=== PATIENT | female | born 1975 | race Caucasian/White ===

== ENCOUNTER 2017-01-13 09:50 | Emergency (ER) | payer OTHER ==
--- NOTE | 2017-01-13 10:16 | ERPHSYRPT ---
- History of Present Illness Time Seen by Provider: 01/13/17 10:11 Historian: patient Exam Limitations: no limitations Patient Subjective Stated Complaint: here for sob,and epigstric pain for 2 days , constant pain, sob at rest states hard to take deep breath,no cough, no fever Triage Nursing Assessment: pt alert, walked in, resp labored with excertion, skin w/d pink.no edema noted Physician History: Pt. with substernal CP began 2 days ago, while at rest. States constant, pressure, radiates to back and worse with deep breaths and assoc. with nausea/ vomitng X2 and ? palpitations. States more fatigue, dizziness and weakness but not fever, chills or diaphoresis. Recently had sleep study with shallow breathing and awaiting for C-pap machine. States took Advil with minimal relief. Timing/Duration: day(s) (2) Activities at Onset: rest Quality: pressure Location: substernal Chest Pain Radiation: back Severity of Pain-Max: moderate (5/10) Severity of Pain-Current: moderate Modifying Factors: Improves With: breathing (worsens), movement (worsens). Worsens With: coughing Associated Symptoms: nausea, vomiting, palpitations, shortness of breath, hurts to breathe, fatigue, weakness, dizziness, No diaphoresis, No fever, No edema, No back pain Prior Chest Pain/Cardiac Workup: no prior chest pain Nitro Today/Relief: no nitro taken today Aspirin Treatment Today: no aspirin today Allergies/Adverse Reactions: Sulfa (Sulfonamide Antibiotics) [Sulfa(Sulfonamide Antibiotics)] Allergy ( Intermediate, Verified 01/13/17 10:02) Rash Penicillins Allergy (Unknown, Verified 01/13/17 10:02) Rash pt reports she is not allergic to penicillin Home Medications: Fluticasone/Salmeterol [Advair 250-50 Diskus] 2 puff IH BID PRN 02/11/14 [ History] Bupropion HCl [Wellbutrin] 300 mg PO DAILY 04/21/16 [History] Fexofenadine HCl [Sonia] 180 mg PO DAILY 04/21/16 [History] Paroxetine HCl [Paxil] 20 mg PO DAILY 04/21/16 [History] Hx Tetanus, Diphtheria Vaccination/Date Given: No Hx Influenza Vaccination/Date Given: Yes Hx Pneumococcal Vaccination/Date Given: No - Review of Systems Constitutional: Fatigue, Malaise, No Fever, No Chills Eyes: No Symptoms Ears, Nose, & Throat: Nose Congestion, Nose Discharge, Snoring, No Throat Pain, No Throat Swelling, No Painful Swallowing Respiratory: Dyspnea, No Cough Cardiac: Chest Pain, Palpitations, No Edema, No Syncope, No Orthopnea Abdominal/Gastrointestinal: Abdominal Pain (Epigastric pain), Nausea, Vomiting, No Diarrhea, No Hematemesis, No Hematochezia Genitourinary Symptoms: No Symptoms, No Dysuria Musculoskeletal: No Symptoms, No Back Pain, No Neck Pain Skin: No Symptoms, No Rash Neurological: No Dizziness, No Focal Weakness, No Sensory Changes Psychological: No Symptoms Endocrine: No Symptoms All Other Systems: Reviewed and Negative - Past Medical History Pertinent Past Medical History: Yes Neurological History: No Pertinent History ENT History: No Pertinent History Cardiac History: Arrhythmia (Ablation to resolve symptoms), Other Respiratory History: Asthma Endocrine Medical History: No Pertinent History Musculoskeletal History: No Pertinent History GI Medical History: GERD, Irritable Bowel History: No Pertinent History Psycho-Social History: No Pertinent History Female Reproductive Disorders: No Pertinent History - Past Surgical History Past Surgical History: Yes Neuro Surgical History: No Pertinent History Cardiac: Other Respiratory: No Pertinent History Gastrointestinal: Appendectomy Genitourinary: No Pertinent History Musculoskeletal: No Pertinent History Female Surgical History: Section, Tubal Ligation, Other Other Surgical History: TONSILS. ENDOMETREOSIS. HEART ABLATION FOR VTACH - Social History Smoking Status: Never smoker Exposure to second hand smoke: No Drug Use: none Patient Lives Alone: No - Female History Hx Last Menstrual Period: january - Nursing Vital Signs Temperature: 97.9 F Temperature Source: Oral Pulse Rate: 78 Respiratory Rate: 20 Pain Intensity: 6 - Physical Exam General Appearance: no apparent distress, alert Eye Exam: PERRL/EOMI, eyes nml inspection Ears, Nose, Throat Exam: normal ENT inspection, moist mucous membranes Neck Exam: normal inspection, non-tender, supple, full range of motion Respiratory Exam: normal breath sounds, lungs clear, No respiratory distress Cardiovascular Exam: regular rate/rhythm, normal heart sounds Gastrointestinal/Abdomen Exam: soft, No tenderness, No distention, No mass Back Exam: normal inspection, No CVA tenderness, No vertebral tenderness Extremity Exam: normal inspection, normal range of motion Neurologic Exam: alert, oriented x 3, cooperative, normal mood/affect, sensation nml, No motor deficits Skin Exam: normal color, warm, dry SpO2: 95 Oxygen Delivery: Room Air - Course Nursing assessment & vital signs reviewed: Yes EKG Interpreted by Me: RATE (78), Sinus Rhythm, NORMAL AXIS, NORMAL INTERVALS, NORMAL QRS, NORMAL ST-T - Radiology Exams Chest X-ray Interpretation: Teleradiologist Report, No Pneumonia, Other (calcified granuloma) - CT Exams Chest CT Interpretation: Tele-radiologist Report, No PE Ordered Tests: Active Orders 24 hr Category Date Time Status Airport Location Manager STAT Care 01/13/17 10:22 Active EKG-ER Only STAT Care 01/13/17 10:22 Active IV Insertion STAT Care 01/13/17 10:22 Active CHEST 2 VIEWS (PA AND LAT) Stat Exams 01/13/17 10:23 Completed CHEST WITH CONTRAST [CT] Stat Exams 01/13/17 11:13 Completed BMP Stat Lab 01/13/17 10:30 Completed CBC W DIFF Stat Lab 01/13/17 10:30 Completed CK-Creatinine Phosphokinase Stat Lab 01/13/17 10:30 Completed D-DIMER QUANTITATION Stat Lab 01/13/17 10:30 Completed TROPONIN Q3H Lab 01/13/17 10:30 Completed TROPONIN Q3H Lab 01/13/17 13:30 Ordered TROPONIN Q3H Lab 01/13/17 16:30 Ordered TROPONIN Q3H Lab 01/13/17 19:30 Ordered TROPONIN Q3H Lab 01/13/17 22:30 Ordered Medication Summary Discontinued Medications Generic Name Dose Route Start Last Admin Trade Name Freq PRN Reason Stop Dose Admin Ketorolac Tromethamine 30 mg 01/13/17 10:24 01/13/17 11:02 Toradol 30 Mg Injection IV 01/13/17 10:25 30 mg STAT ONE Administration Ketorolac Tromethamine Confirm 01/13/17 11:01 Toradol 30 Mg Injection Administered 01/13/17 11:02 Dose 30 mg .ROUTE .[facility] ONE Lab/Rad Data: Laboratory Result Diagrams 01/13/17 10:30 01/13/17 10:30 Laboratory Results 01/13/17 01/13/17 01/13/17 Range/Units 10:30 10:30 10:30 WBC (4.0-10.5) K/mm3 RBC (4.1-5.4) M/mm3 Hgb (12.0-16.0) gm/dl Hct (35-47) % MCV (78-100) fl MCH (26-32) pg MCHC (32-36) g/dl RDW (11.5-14.0) % Plt Count (150-450) K/mm3 MPV (6-9.5) fl Gran % (36.0-66.0) % Lymphocytes % (24.0-44.0) % Monocytes % (0.0-12.0) % Eosinophils % (0.00-5.0) % Basophils % (0.0-0.4) % Basophils # (0-0.4) D-Dimer 0.293 (0.00-0.49) mg/L Sodium 135 L (136-145) mEq/L Potassium 3.6 (3.5-5.1) mEq/L Chloride 101 (98-107) mEq/L Carbon Dioxide 27.2 (21-32) mEq/L Anion Gap 10.5 (5-15) MEQ/L BUN 11 (9-20) mg/dL Creatinine 0.94 (0.55-1.30) mg/dl Estimated GFR > 60 ML/MIN Glucose 123 H (70-110) MG/DL Calcium 9.4 (8.5-10.1) mg/dL Creatine Kinase 123 (26-192) U/L Troponin I < 0.017 (0.000-0.056) ng/ml 01/13/17 Range/Units 10:30 WBC 7.6 (4.0-10.5) K/mm3 RBC 4.33 (4.1-5.4) M/mm3 Hgb 12.6 (12.0-16.0) gm/dl Hct 38.5 (35-47) % MCV 88.9 (78-100) fl MCH 29.1 (26-32) pg MCHC 32.7 (32-36) g/dl RDW 12.6 (11.5-14.0) % Plt Count 289 (150-450) K/mm3 MPV 10.5 H (6-9.5) fl Gran % 57.9 (36.0-66.0) % Lymphocytes % 30.8 (24.0-44.0) % Monocytes % 6.0 (0.0-12.0) % Eosinophils % 4.9 (0.00-5.0) % Basophils % 0.4 (0.0-0.4) % Basophils # 0.03 (0-0.4) D-Dimer (0.00-0.49) mg/L Sodium (136-145) mEq/L Potassium (3.5-5.1) mEq/L Chloride (98-107) mEq/L Carbon Dioxide (21-32) mEq/L Anion Gap (5-15) MEQ/L BUN (9-20) mg/dL Creatinine (0.55-1.30) mg/dl Estimated GFR ML/MIN Glucose (70-110) MG/DL Calcium (8.5-10.1) mg/dL Creatine Kinase (26-192) U/L Troponin I (0.000-0.056) ng/ml - Progress Progress: improved Air Movement: good Progress Note: 01/13/17 12:26 Pt. given Toradol/Morphine with good relief of her chest discomfort Blood Culture(s) Obtained: No Antibiotics given: No Counseled pt/family regarding: lab results, diagnosis, rad results - Departure Time of Disposition: 12:27 Departure Disposition: Home Clinical Impression: Pleurisy Condition: Stable Critical Care Time: No Referrals: VIRY JAEGER [Primary Care Provider] - Instructions: Pleurisy Additional Instructions: Motrin 800mg every 8 hrs with food for pain Return for worse chest pain, short of breath, fever, cough or any problems. Forms: Work/School Release Form
[2017-01-13] MEDS ORDERED: TORAdol 30 mg Injection IV ONE (10:24)
[2017-01-13 10:38] LABS: BASOPHIL % 0.4 % (0.0-0.4); Eosinophil % 4.9 % (0.00-5.0); Granulocytes % 57.9 % (36.0-66.0); Lymphocytes % 30.8 % (24.0-44.0); Mean Cell Volume 88.9 fl (78-100); Mean Corpuscular Hemoglobin 29.1 pg (26-32); Mean Platelet Volume 10.5 fl (6-9.5); Platelet Count 289 K/mm3 (150-450); Red Blood Count 4.33 M/mm3 (4.1-5.4); Red Cell Distribution Width 12.6 % (11.5-14.0); White Blood Count 7.6 K/mm3 (4.0-10.5)
[2017-01-13] MEDS ORDERED: TORAdol 30 mg Injection ONE (11:01)
[2017-01-13 11:13] LABS: ANION GAP 10.5 MEQ/L (5-15); BLOOD UREA NITROGEN 11 mg/dL (9-20); CHLORIDE 101 mEq/L (98-107); Carbon Dioxide 27.2 mEq/L (21-32); Glucose 123 MG/DL (70-110); Potassium 3.6 mEq/L (3.5-5.1); SODIUM 135 mEq/L (136-145)
--- NOTE | 2017-01-13 11:18 | XRAY ---
Indication: Chest pain and short of breath. Comparison: February 15, 2014. PA/lateral chest again demonstrates normal heart, lungs, and bony thorax with incidental calcified granulomas.
--- NOTE | 2017-01-13 12:13 | XRAY ---
Indication: Chest pain. Multiple contiguous axial images obtained through the chest using 80 cc Isovue 370 contrast and PE protocol. Comparison: None There is satisfactory opacification of the pulmonary arteries to include the lobar and segmental branches. Heart is not enlarged. Aorta is normal in course and caliber. A few left hilar calcified nodes. No pathologic mediastinal/hilar lymphadenopathy. Examination of the lung parenchyma demonstrates minimal bilateral dependent atelectasis. Left lower lobe calcified granuloma. No suspicious pulmonary mass/nodule, infiltrate, consolidation, or effusion. Bony thorax intact. Limited upper abdomen unremarkable. Impression: 1. Negative for pulmonary embolus. No acute cardiopulmonary abnormalities. 2. Evidence for old granulomatous disease. CT DI 20.00
[2017-01-13] MEDS ORDERED: MORPHINE SULFATE 2 MG INJ IV ONE (12:24)
[2017-01-13 12:30] VITALS: O2SAT 95
[2017-01-13] MEDS ORDERED: MORPHINE SULFATE 4 MG INJ ONE (12:31)
[2017-01-13 12:44] VITALS: BP 142/78; PULSE 74
== END 2017-01-13 13:05 | disposition home or self-care (01) ==
LOC: ED 09:50
DX: R09.1 Pleurisy (principal); R06.02 Shortness of breath; R10.13 Epigastric pain; R11.2 Nausea with vomiting, unspecified; R00.2 Palpitations; R53.1 Weakness; R53.83 Other fatigue; Z79.899 Other long term (current) drug therapy
CPT/HCPCS: 36000; 36415; 71020; 71260; 80048; 82550; 84484; 85025; 85379; 93005; 93041; 96374; 96375; 99284; J1885; J2270

== ENCOUNTER 2021-03-27 10:58 | Emergency (ER) | payer OTHER ==
--- NOTE | 2021-03-27 11:25 | ERPHSYRPT ---
- History of Present Illness Time Seen by Provider: 03/27/21 11:15 Source: patient Exam Limitations: no limitations Patient Subjective Stated Complaint: Pt states "I was sitting in a chair and my head started to feel weird and I had them take my blood pressure and my pressure was cedrick high." Triage Nursing Assessment: Pt presented alert and oriented X3, skin pwd Pt ambulates with an upright steady gait, johnny to speak in clear full sentencse pt i n no apparent respiratory distress. Physician History: This is a morbidly obese 46-year-old white female who has a history of COPD, anxiety, and sleep apnea and wears a machine at night for it. She went to bed feeling fine. However, when she woke up this morning she stated that she had a headache. At work it became worse. Her blood pressure was elevated. Her systolic blood pressure was in the 160s and the diastolic blood pressure was in the 110s. Because of her headache and dizziness and the blood pressure readings, patient was brought over to the emergency department for evaluation. She does not have any chest pain today. She is not diabetic. She is not on any blood pressure medication. She denies visual changes. She has no history of migraine headaches Timing/Duration: today Quality: aching Head Pain Location: global Severity of Pain-Max: moderate Severity of Pain-Current: mild Recent Head Trauma: no recent headache/trauma Modifying Factors: Worsens With: exposure to light, noise, position Associated Symptoms: dizziness, No fever/chills, No loss of consciousness, No nausea/vomiting, No nasal congestion, No sensitive to light, No vision changes Previous symptoms: no prior history Allergies/Adverse Reactions: Sulfa (Sulfonamide Antibiotics) [Sulfa(Sulfonamide Antibiotics)] Allergy (Interm ediate, Verified 01/13/17 10:02) Rash Penicillins Allergy (Unknown, Verified 01/13/17 10:02) Rash pt reports she is not allergic to penicillin Home Medications: Fluticasone/Salmeterol [Advair 250-50 Diskus] 2 puff IH BID PRN 02/11/14 [History] Bupropion HCl [Wellbutrin] 300 mg PO DAILY 04/21/16 [History] Fexofenadine HCl [Sonia] 180 mg PO DAILY 04/21/16 [History] Paroxetine HCl [Paxil] 20 mg PO DAILY 04/21/16 [History] Hx Tetanus, Diphtheria Vaccination/Date Given: No Hx Influenza Vaccination/Date Given: Yes Hx Pneumococcal Vaccination/Date Given: No Immunizations Up to Date: Yes Travel Risk - International Travel Have you traveled outside of the country in past 3 weeks: No - Coronavirus Screening Are you exhibiting any of the following symptoms?: No Close contact with a COVID-19 positive Pt in past 14-21 Days: No - Vaccine Status Have you recieved a Covid-19 vaccination: Yes 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: [facility] - Review of Systems Constitutional: No Symptoms Eyes: No Symptoms Ears, Nose, & Throat: No Symptoms Respiratory: No Symptoms Cardiac: No Symptoms Abdominal/Gastrointestinal: No Symptoms Genitourinary Symptoms: No Symptoms Musculoskeletal: No Symptoms Skin: No Symptoms Neurological: Dizziness, Headache Psychological: No Symptoms Endocrine: No Symptoms Hematologic/Lymphatic: No Symptoms Immunological/Allergic: No Symptoms All Other Systems: Reviewed and Negative - Past Medical History Pertinent Past Medical History: Yes Neurological History: No Pertinent History ENT History: No Pertinent History Cardiac History: Arrhythmia, Other Respiratory History: Asthma Endocrine Medical History: No Pertinent History Musculoskeletal History: No Pertinent History GI Medical History: GERD, Irritable Bowel History: No Pertinent History Psycho-Social History: No Pertinent History Female Reproductive Disorders: No Pertinent History - Past Surgical History Past Surgical History: Yes Neuro Surgical History: No Pertinent History Cardiac: Other Respiratory: No Pertinent History Gastrointestinal: Appendectomy Genitourinary: No Pertinent History Musculoskeletal: No Pertinent History Female Surgical History: Section, Tubal Ligation, Other Other Surgical History: TONSILS. ENDOMETREOSIS. HEART ABLATION FOR VTACH - Social History Smoking Status: Never smoker Exposure to second hand smoke: No Drug Use: none Patient Lives Alone: No - Female History Hx Last Menstrual Period: 03/24/2021 Hx Now: No - Nursing Vital Signs Nursing Vital Signs: Initial Vital Signs Temperature 97.8 F 03/27/21 10:59 Pulse Rate 104 H 03/27/21 10:59 Respiratory Rate 24 03/27/21 10:59 Blood Pressure 162/104 03/27/21 10:59 O2 Sat by Pulse Oximetry 99 03/27/21 10:59 Pain Scale Pain Intensity 0 - Physical Exam General Appearance: no apparent distress Eye Exam: PERRL/EOMI, eyes nml inspection Ears, Nose, Throat Exam: normal ENT inspection, moist mucous membranes Neck Exam: normal inspection, non-tender, supple, full range of motion Respiratory Exam: normal breath sounds, lungs clear, airway intact, No chest tenderness, No respiratory distress Cardiovascular Exam: regular rate/rhythm, normal heart sounds, normal peripheral pulses Gastrointestinal/Abdominal Exam: soft, normal bowel sounds, No tenderness Back Exam: normal inspection, normal range of motion, No CVA tenderness, No vertebral tenderness Extremity Exam: normal inspection, normal range of motion, pelvis stable Mental Status Exam: alert, 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 There are no acute changes when compared to EKG dated 01/13/2017.) Ordered Tests: Active Orders 24 hr Category Date Time Status Brake Drum Molder STAT Care 03/27/21 11:29 Active EKG-ER Only STAT Care 03/27/21 11:30 Active IV Insertion STAT Care 03/27/21 11:29 Active Pulse Oximetry (ED) STAT Care 03/27/21 11:29 Active HEAD WITHOUT CONTRAST [CT] Stat Exams 03/27/21 11:29 Completed CBC W DIFF Stat Lab 03/27/21 11:25 Completed CMP Stat Lab 03/27/21 11:25 Completed TROPONIN Q3H Lab 03/27/21 11:25 Completed TROPONIN Q3H Lab 03/27/21 14:30 Ordered TROPONIN Q3H Lab 03/27/21 17:30 Ordered TROPONIN Q3H Lab 03/27/21 20:30 Ordered TROPONIN Q3H Lab 03/27/21 23:30 Ordered UA W/RFX UR CULTURE Stat Lab 03/27/21 12:41 Completed Medication Summary Discontinued Medications Generic Name Dose Route Start Last Admin Trade Name Freq PRN Reason Stop Dose Admin Morphine Sulfate 2 mg 03/27/21 11:29 03/27/21 11:41 Morphine Sulfate 2 Mg Inj IV 03/27/21 11:30 2 mg STAT ONE Administration Morphine Sulfate Confirm 03/27/21 11:37 Morphine Sulfate 2 Mg Inj Administered 03/27/21 11:38 Dose 2 mg .ROUTE .STK-[facility] ONE Ondansetron HCl 4 mg 03/27/21 11:29 03/27/21 11:38 Zofran 4 Mg/2 Ml Vial IV 03/27/21 11:30 4 mg STAT ONE Administration Ondansetron HCl Confirm 03/27/21 11:36 Zofran 4 Mg/2 Ml Vial Administered 03/27/21 11:37 Dose 4 mg .ROUTE .STK-[facility] ONE Lab/Rad Data: Laboratory Result Diagrams 03/27/21 11:25 03/27/21 11:25 Laboratory Results 03/27/21 03/27/21 03/27/21 Range/Units 12:41 11:25 11:25 WBC (4.0-10.5) K/mm3 RBC (4.1-5.4) M/mm3 Hgb (12.0-16.0) gm/dl Hct (35-47) % MCV (78-100) fl MCH (26-32) pg MCHC (32-36) g/dl RDW (11.5-14.0) % Plt Count (150-450) K/mm3 MPV (7.5-11.0) fl Gran % (36.0-66.0) % Eos # (Auto) (0-0.5) Absolute Lymphs (auto) (1.0-4.6) Absolute Monos (auto) (0.0-1.3) Lymphocytes % (24.0-44.0) % Monocytes % (0.0-12.0) % Eosinophils % (0.00-5.0) % Basophils % (0.0-0.4) % Absolute Granulocytes (1.4-6.9) Basophils # (0-0.4) Sodium 136 L (137-145) mmol/L Potassium 4.4 (3.5-5.1) mmol/L Chloride 100 (98-107) mmol/L Carbon Dioxide 25 (22-30) mmol/L Anion Gap 15.5 H (5-15) MEQ/L BUN 11 (7-17) mg/dL Creatinine 1.08 H (0.52-1.04) mg/dL Estimated GFR 57.8 ML/MIN Glucose 97 (74-106) mg/dL Calcium 9.0 (8.4-10.2) mg/dL Total Bilirubin 0.30 (0.2-1.3) mg/dL AST 29 (14-36) U/L ALT 28 (0-35) U/L Alkaline Phosphatase 68 (38-126) U/L Troponin I < 0.012 (0.000-0.034) ng/mL Serum Total Protein 7.4 (6.3-8.2) g/dL Albumin 4.4 (3.5-5.0) g/dL Urine Color STRAW (YELLOW) Urine Appearance CLEAR (CLEAR) Urine pH 7.0 (5-6) Ur Specific [place] 1.005 (1.005-1.025) Urine Protein NEGATIVE (Negative) Urine Ketones NEGATIVE (NEGATIVE) Urine Blood SMALL (0-5) Nelson/ul Urine Nitrite NEGATIVE (NEGATIVE) Urine Bilirubin NEGATIVE (NEGATIVE) Urine Urobilinogen NEGATIVE (0-1) mg/dL Ur Leukocyte Esterase NEGATIVE (NEGATIVE) Urine WBC (Auto) NONE SEEN (0-5) /HPF Urine RBC (Auto) NONE (0-2) /HPF U Epithel Cells (Auto) NONE (FEW) /HPF Urine Bacteria (Auto) NONE (NEGATIVE) /HPF Urine Mucus (Auto) SLIGHT (NEGATIVE) /HPF Urine Culture Reflexed NO (NO) Urine Glucose NEGATIVE (NEGATIVE) mg/dL 03/27/21 Range/Units 11:25 WBC 8.7 (4.0-10.5) K/mm3 RBC 4.05 L (4.1-5.4) M/mm3 Hgb 12.0 (12.0-16.0) gm/dl Hct 37.7 (35-47) % MCV 93.1 (78-100) fl MCH 29.6 (26-32) pg MCHC 31.8 L (32-36) g/dl RDW 14.7 H (11.5-14.0) % Plt Count 226 (150-450) K/mm3 MPV 10.2 (7.5-11.0) fl Gran % 63.0 (36.0-66.0) % Eos # (Auto) 0.19 (0-0.5) Absolute Lymphs (auto) 2.48 (1.0-4.6) Absolute Monos (auto) 0.52 (0.0-1.3) Lymphocytes % 28.6 (24.0-44.0) % Monocytes % 6.0 (0.0-12.0) % Eosinophils % 2.2 (0.00-5.0) % Basophils % 0.2 (0.0-0.4) % Absolute Granulocytes 5.46 (1.4-6.9) Basophils # 0.02 (0-0.4) Sodium (137-145) mmol/L Potassium (3.5-5.1) mmol/L Chloride (98-107) mmol/L Carbon Dioxide (22-30) mmol/L Anion Gap (5-15) MEQ/L BUN (7-17) mg/dL Creatinine (0.52-1.04) mg/dL Estimated GFR ML/MIN Glucose (74-106) mg/dL Calcium (8.4-10.2) mg/dL Total Bilirubin (0.2-1.3) mg/dL AST (14-36) U/L ALT (0-35) U/L Alkaline Phosphatase (38-126) U/L Troponin I (0.000-0.034) ng/mL Serum Total Protein (6.3-8.2) g/dL Albumin (3.5-5.0) g/dL Urine Color (YELLOW) Urine Appearance (CLEAR) Urine pH (5-6) Ur Specific [place] (1.005-1.025) Urine Protein (Negative) Urine Ketones (NEGATIVE) Urine Blood (0-5) Nelson/ul Urine Nitrite (NEGATIVE) Urine Bilirubin (NEGATIVE) Urine Urobilinogen (0-1) mg/dL Ur Leukocyte Esterase (NEGATIVE) Urine WBC (Auto) (0-5) /HPF Urine RBC (Auto) (0-2) /HPF U Epithel Cells (Auto) (FEW) /HPF Urine Bacteria (Auto) (NEGATIVE) /HPF Urine Mucus (Auto) (NEGATIVE) /HPF Urine Culture Reflexed (NO) Urine Glucose (NEGATIVE) mg/dL - Progress Progress: improved, re-examined, unchanged Air Movement: good Progress Note: 03/27/21 12:02 Patient did later state that she has started a keto diet. She has not had any change in other types of oral intake including no change in her medications. 03/27/21 12:26 CAT scan of the head without contrast shows a subcentimeter old infarct in the right basal ganglia. No evidence of any acute intracranial abnormality. Blood Culture(s) Obtained: No Counseled pt/family regarding: lab results, diagnosis, need for follow-up, rad results - Departure Departure Disposition: Home Clinical Impression: Headache, Mild hypertension Condition: Stable Critical Care Time: No Referrals: VIRY TELLO [Primary Care Provider] - Additional Instructions: Drink plenty of fluids. Stop your keto diet until after you discuss your symptoms, hypertension and the keto diet with your primary care physician. Keep a daily log of your blood pressure readings. Monitor and log your blood pressure reading 3 times a day. Call your primary care physician to make arranges for follow-up appointment. Take all your other medications as prescribed.
[2021-03-27] MEDS ORDERED: Zofran 4 MG/2 ML VIAL IV ONE (11:29)
[2021-03-27] MEDS ORDERED: MORPHINE SULFATE 2 MG INJ IV ONE (11:29)
[2021-03-27] MEDS ORDERED: Zofran 4 MG/2 ML VIAL ONE (11:36)
[2021-03-27] MEDS ORDERED: MORPHINE SULFATE 2 MG INJ ONE (11:37)
[2021-03-27 11:44] LABS: Absolute Neutrophil Ct (ANC) 5.46 (1.4-6.9); BASOPHIL % 0.2 % (0.0-0.4); Basophil (Absolute #) 0.02 (0-0.4); Eosinophil % 2.2 % (0.00-5.0); Eosinophil (Absolute #) 0.19 (0-0.5); Hematocrit 37.7 % (35-47); Lymphocyte (Absolute #) 2.48 (1.0-4.6); Lymphocytes % 28.6 % (24.0-44.0); Mean Cell Volume 93.1 fl (78-100); Mean Corpuscular Hemoglobin 29.6 pg (26-32); Mean Corpuscular Hgb Concent. 31.8 g/dl (32-36); Mean Platelet Volume 10.2 fl (7.5-11.0); Monocyte (Absolute #) 0.52 (0.0-1.3); Platelet Count 226 K/mm3 (150-450); Red Blood Count 4.05 M/mm3 (4.1-5.4); Red Cell Distribution Width 14.7 % (11.5-14.0); White Blood Count 8.7 K/mm3 (4.0-10.5)
[2021-03-27 12:00] LABS: ALBUMIN 4.4 g/dL (3.5-5.0); ANION GAP 15.5 MEQ/L (5-15); BILIRUBIN,TOTAL 0.3 mg/dL (0.2-1.3); Creatinine 1 1.08 mg/dL (0.52-1.04); EST GLOMERULAR FILTRATION RATE 57.8 ML/MIN; Potassium 4.4 mmol/L (3.5-5.1); Total Protein 7.4 g/dL (6.3-8.2)
--- NOTE | 2021-03-27 12:05 | XRAY ---
Indication: Headache, nausea, dizziness, and hypertension. Multiple contiguous axial images obtained through the head without contrast. Comparison: None Ventriculosulcal pattern appears symmetric. Old 9 mm infarct right basal ganglia. No acute intracranial hemorrhage, abnormal extra-axial fluid collection, or mass effect. Fourth ventricle is midline without hydrocephalus. [place]-white matter differentiation preserved. Bony calvarium intact. Visualized paranasal sinuses and mastoid air cells are clear. 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 Remaining CT head without contrast exam is negative.
[2021-03-27 13:16] VITALS: O2SAT 99
[2021-03-27 13:17] LABS: Appearance CLEAR (CLEAR); Bilirubin NEGATIVE (NEGATIVE); Blood SMALL Ery/ul (0-5); Glucose NEGATIVE (NEGATIVE); Ketones NEGATIVE (NEGATIVE); Leukocyte Esterase NEGATIVE (NEGATIVE); Mucus SLIGHT /HPF (NEGATIVE); Nitrite NEGATIVE (NEGATIVE); Protein,Urine Dip NEGATIVE (Negative); Specific Gravity 1.005 (1.005-1.025); Urobilinogen NEGATIVE mg/dL (0-1); WBC NONE SEEN /HPF (0-5)
[2021-03-27 13:25] VITALS: BP 139/82; PULSE 88
== END 2021-03-27 13:32 ==
LOC: ED 10:58
DX: R51.9 Headache, unspecified (principal)
CPT/HCPCS: 36000; 36415; 70450; 80053; 81001; 84484; 85025; 93005; 93041; 94760; 96374; 96375; 99284; J2270; J2405

== ENCOUNTER 2021-04-07 17:04 | Emergency (ER) | payer OTHER ==
[2021-04-07] MEDS ORDERED: Zofran 4 MG/2 ML VIAL ONE (17:34)
[2021-04-07] MEDS ORDERED: MORPHINE SULFATE 4 MG INJ ONE (17:35)
[2021-04-07] MEDS: Zofran 4 MG/2 ML VIAL IV ONE (17:37)
[2021-04-07] MEDS: MORPHINE SULFATE 4 MG INJ IV ONE (17:39)
--- NOTE | 2021-04-07 17:57 | ERPHSYRPT ---
- History of Present Illness Source: patient Exam Limitations: no limitations Patient Subjective Stated Complaint: Abnormal labs Triage Nursing Assessment: Patient ambulated back to ED and transferred self to bed. Patient A+O X3. Patient's skin pink, warm and dry. Patient states she was seen by the doctor today for mid back pain constant aching pain 6/10 for the past two days. Patient also complains of fatigue, [place], Loss of taste and smell, cough, SOB, Vomiting and diarrhea. Patient was tested for Covid today with negative results. Patient was called by doctor to come to ED for D Dimer over 700. Lungs clear a/p melissa. Timing/Duration: day(s) (5), gradual onset, worse Cough Quality/Degree: moderate, dry cough Modifying Factors: Improves With: albuterol nebulizer, rest. Worsens With: activity, coughing Associated Symptoms: chills, chest pain/soreness, cough, headache, muscle aches, wheezing Hx Tetanus, Diphtheria Vaccination/Date Given: No Hx Influenza Vaccination/Date Given: Yes Hx Pneumococcal Vaccination/Date Given: No Immunizations Up to Date: Yes <VANESSA SMITH - Last Filed: 04/07/21 18:36> <JHON SAEED - Last Filed: 04/07/21 19:40> - History of Present Illness Time Seen by Provider: 04/07/21 17:05 Physician History: 46 years old morbidly obese female with history of asthma presented in the ER with chief complaint of cough congestion and flulike symptoms for the last 5 days. Patient report dry hacking cough with shortness of breath on activity/exertion and better with resting and taking neb treatments. She is also complaining of mid back pain constant dull aching 6/10 intensity without any significant aggravating or relieving factors. Denies any chest pain otherwise. She has nausea vomiting, diarrhea with loss of taste and smell. Has been tested for Covid twice and is negative. She was seen at primary care office today and has D-dimer 700s. Sent in ER for DVT/PE rule out. (VANESSA SMITH) Allergies/Adverse Reactions: Sulfa (Sulfonamide Antibiotics) [Sulfa(Sulfonamide Antibiotics)] Allergy (Intermediate, Verified 04/07/21 17:06) Rash Penicillins Allergy (Unknown, Verified 04/07/21 17:06) Rash pt reports she is not allergic to penicillin Home Medications: Fluticasone/Salmeterol [Advair 250-50 Diskus] 2 puff IH BID PRN 02/11/14 [History] Bupropion HCl [Wellbutrin] 300 mg PO DAILY 04/21/16 [History] Fexofenadine HCl [Sonia] 180 mg PO DAILY 04/21/16 [History] Paroxetine HCl [Paxil] 40 mg PO DAILY 04/21/16 [History] Travel Risk - International Travel Have you traveled outside of the country in past 3 weeks: No - Coronavirus Screening Are you exhibiting any of the following symptoms?: Yes Symptoms: Cough: New Onset, Shortness of Breath, Vomiting/Diarrhea, Loss of Taste or Smell, Headaches/Body Aches/Fatigue Close contact with a COVID-19 positive Pt in past 14-21 Days: Yes - Vaccine Status Have you recieved a Covid-19 vaccination: Yes 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[email or web address] <VANESSA SMITH - Last Filed: 04/07/21 18:36> - Review of Systems Constitutional: Chills, Fatigue, Weakness Eyes: No Symptoms Ears, Nose, & Throat: Nose Congestion Respiratory: Cough, Dyspnea, Dyspnea on Exertion (WALKER), Wheezing Cardiac: No Symptoms Abdominal/Gastrointestinal: Nausea, Vomiting, Diarrhea Genitourinary Symptoms: No Symptoms Musculoskeletal: Myalgias Skin: No Symptoms Neurological: No Symptoms Psychological: No Symptoms Endocrine: No Symptoms Hematologic/Lymphatic: No Symptoms Immunological/Allergic: No Symptoms <VANESSA SMITH - Last Filed: 04/07/21 18:36> - Past Medical History Pertinent Past Medical History: Yes Neurological History: No Pertinent History ENT History: No Pertinent History Cardiac History: Arrhythmia, Other Respiratory History: Asthma Endocrine Medical History: No Pertinent History Musculoskeletal History: No Pertinent History GI Medical History: GERD, Irritable Bowel History: No Pertinent History Psycho-Social History: No Pertinent History Female Reproductive Disorders: No Pertinent History - Past Surgical History Past Surgical History: Yes Neuro Surgical History: No Pertinent History Cardiac: Other Respiratory: No Pertinent History Gastrointestinal: Appendectomy Genitourinary: No Pertinent History Musculoskeletal: No Pertinent History Female Surgical History: Section, Tubal Ligation, Other Other Surgical History: TONSILS. ENDOMETREOSIS. HEART ABLATION FOR VTACH - Social History Smoking Status: Never smoker Exposure to second hand smoke: No Drug Use: none Patient Lives Alone: No - Female History Hx Last Menstrual Period: one month ago Hx Now: No <VANESSA SMITH - Last Filed: 04/07/21 18:36> - Physical Exam General Appearance: no apparent distress, alert Eye Exam: PERRL/EOMI, eyes nml inspection Ears, Nose, Throat Exam: TMs normal, pharyngeal erythema Neck Exam: normal inspection, non-tender, full range of motion Respiratory Exam: normal breath sounds, lungs clear Cardiovascular Exam: regular rate/rhythm, normal heart sounds Gastrointestinal/Abdomen Exam: soft, normal bowel sounds, No tenderness Back Exam: normal inspection, normal range of motion Extremity Exam: normal inspection, normal range of motion, pelvis stable Neurologic Exam: alert, oriented x 3, 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, 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 nml as tested Skin Exam: normal color SpO2 Interpretation: normal SpO2: 98 O2 Delivery: Oxymizer <VANESSA SMITH - Last Filed: 04/07/21 18:36> - Nursing Vital Signs Nursing Vital Signs: Initial Vital Signs Temperature 97.2 F 04/07/21 17:10 Pulse Rate 93 H 04/07/21 17:10 Respiratory Rate 18 04/07/21 17:10 Blood Pressure 114/80 04/07/21 17:10 O2 Sat by Pulse Oximetry 98 04/07/21 17:10 Pain Scale Pain Intensity 0 - Course EKG Interpreted by Me: RATE (96), Sinus Rhythm, NORMAL AXIS, NORMAL INTERVALS, NORMAL QRS <VANESSA SMITH - Last Filed: 04/07/21 18:36> - Course EKG Interpreted by Me: RATE - CT Exams Chest CT Interpretation: Tele-radiologist Report (Pulmonary embolus. No evidence of acute pulmonary pathology. Incidental left lower lobe granuloma.) <JHON SAEED - Last Filed: 04/07/21 19:40> Ordered Tests: Active Orders 24 hr Category Date Time Status EKG-ER Only STAT Care 04/07/21 17:28 Active IV Insertion STAT Care 04/07/21 17:28 Active CHEST WITH CONTRAST [CT] Stat Exams 04/07/21 19:16 Taken VENOUS BILATERAL EXTREMITY [US] Stat Exams 04/07/21 17:28 Taken TROPONIN Q3H Lab 04/07/21 17:43 Completed TROPONIN Q3H Lab 04/07/21 20:30 Ordered TROPONIN Q3H Lab 04/07/21 23:30 Ordered TROPONIN Q3H Lab 04/08/21 02:30 Ordered TROPONIN Q3H Lab 04/08/21 05:30 Ordered Medication Summary Generic Name Dose Route Start Last Admin Trade Name Faustino PRN Reason Stop Dose Admin Morphine Sulfate 4 mg 04/07/21 17:28 04/07/21 17:39 Morphine Sulfate 4 Mg Inj IV 04/07/21 17:29 4 mg STAT ONE Administration Ondansetron HCl 4 mg 04/07/21 17:28 04/07/21 17:37 Zofran 4 Mg/2 Ml Vial IV 04/07/21 17:29 4 mg STAT ONE Administration Lab/Rad Data: Laboratory Results 04/07/21 Range/Units 17:43 Troponin I < 0.012 (0.000-0.034) ng/mL - Progress Progress: improved, re-examined Air Movement: good Blood Culture(s) Obtained: No Antibiotics given: No Discussed with : Paola Counseled pt/family regarding: lab results, diagnosis, rad results <VANESSA SMITH - Last Filed: 04/07/21 18:36> <JHON SAEED - Last Filed: 04/07/21 19:40> - Progress Progress Note: 04/07/21 18:57 she is given morphine for symptomatic relief. EKG showed sinus rhythm with no acute ST elevations. I have repeated troponin and is negative. So 6-hour troponins are negative and patient symptom does not seem cardiac origin. CTA is pending. Care is transferred to Dr. Saeed at shift change for final disposition. (VANESSA SMITH) Patient endorsed to Dr. Saeed at approximately [address] Saeed advised to follow- up on pending CTA chest. Dr. Saeed was instructed that patient may be discharged as long as her CT chest is negative. CTA chest is negative for pulmonary embolus. No evidence of acute pulmonary pathology. There is an incidental left lower lobe granuloma. Patient otherwise feels well. Patient states she is ready for discharge. No other or additional work-up indicated at this time. Will discharge home. Patient agrees to follow-up with the primary care doctor within 48 hours for reevaluation. Portions of this note were created with voice recognition technology. There may be grammatical, spelling, punctuation or sound alike errors 04/07/21 19:32 04/07/21 19:39 Ultrasound negative for DVT. (JULIUS SAEEDLANDO) <LUIS,VANESSA - Last Filed: 04/07/21 18:36> - Departure Departure Disposition: Home Critical Care Time: No <JHON SAEED - Last Filed: 04/07/21 19:40> - Departure Clinical Impression: Viral syndrome, Lung granuloma Condition: Stable Referrals: Provider,Unknown [Primary Care Provider] - PK LORENZANA DO [ACTIVE STAFF] - Additional Instructions: Discharge/Care Plan ALBA CARDONA was seen on 04/07/21 in the Emergency Room. The patient was counseled regarding Diagnosis,Lab results, Imaging studies, need for follow up and when to return to the Emergency Room. Prescriptions given: Discharge Note I have spoken with the patient and/or caregivers. I have explained the patient's condition, diagnosis and treatment plan based on the information available to me at this time. I have answered the patient's and/or caregiver's questions and addressed any concerns. The patient and/or caregivers have as good understanding of the patient's diagnosis, condition and treatment plan as can be expected at this point. The vital signs have been stable. The patient's condition is stable and appropriate for discharge from the emergency department. The patient will pursue further outpatient evaluation with the primary care physician or other designated or consulting physician as outlined in the discharge instructions. The patient and/or caregivers are agreeable to this plan of care and follow-up instructions have been explained in detail. The patient and/or caregivers have received these instruction. The patient/and or caregivers are aware that any significant change in condition or worsening of symptoms should prompt an immediate return to this or the closest emergency department or call 911.
[2021-04-07 18:43] VITALS: O2SAT 98
[2021-04-07 20:24] VITALS: BP 118/63; PULSE 79
--- NOTE | 2021-04-08 12:18 | XRAY ---
Exam: Bilateral lower extremity duplex Doppler venous ultrasound exam from 04/07/2021. Comparison: None. Indication: Patient complains of bilateral lower extremity pain. Technique: Grayscale images, color blood flow images, and Doppler tracings without and with Doppler signal augmentation were obtained through the major deep veins of both lower extremities. Findings: On the right side, normal transducer compression, color blood flow, and Doppler signal augmentation were seen within charter representative segments of the common femoral vein, proximal, mid, and distal superficial femoral vein, popliteal vein, and distal posterior tibial veins. Normal color blood flow and Doppler signal augmentation are seen within the right profunda femoral vein. Normal transducer compression was seen within the proximal, mid, and distal greater saphenous vein. There was normal color blood flow and Doppler signal augmentation at the junction of the greater saphenous vein with the superficial femoral vein within the proximal right thigh. On the left side, normal transducer compression, color blood flow, and Doppler signal augmentation were seen within charter representative segments of the common femoral vein, proximal, mid, and distal superficial femoral vein, popliteal vein, and distal posterior tibial veins. Normal color blood flow and Doppler signal augmentation are seen within the left profunda femoral vein. Normal transducer compression is seen within the proximal, mid, and distal greater saphenous vein. Normal color blood flow and Doppler signal augmentation is seen where the greater saphenous vein joins the superficial femoral vein within the proximal left thigh. Impression: 1. There is no sonographic or Doppler evidence of deep venous thrombosis within either lower extremity. 2. Nor do I see evidence of superficial venous thrombosis within either lower extremity.
--- NOTE | 2021-04-08 12:38 | XRAY ---
Exam: CT of the chest with IV contrast per PE protocol from 04/07/2021. CTDI: 31.86 mGy Comparison: CT of the chest with IV contrast from 01/13/2017. Indication: 46-year-old female with chest pressure; elevated d-dimer (769); chest pain. Technique: Post-IV contrast axial images were obtained through the chest using the PE the protocol and employing 100 ML's of Isovue 370 contrast material. Reconstructed coronal and sagittal images were created and reviewed. Findings: I see no evidence of clot/embolus within the pulmonary arteries. The thoracic aorta reveals no evidence of aneurysm or dissection. The heart size is normal without pericardial effusion. No abnormal mediastinal or perihilar lymphadenopathy is seen. I do note a few small left perihilar/infrahilar granulomatous calcifications. There is a calcified granuloma within the lateral aspect of the left lower lobe. In addition, there is a 4 mm noncalcified soft tissue nodule at the posterior lateral left lung base on axial images #54 and #55. No air space infiltrates, vascular congestion, pneumothorax, or pleural effusion is seen. Images of the visualized upper abdomen reveal unremarkable appearance of the adrenal glands. No other gross abnormality is seen within the visualized upper abdomen. The skeleton reveals no acute fracture or aggressive bone lesion. Small anterior vertebral endplate spurs are seen within the thoracic spine. There is slight convexity of the mid thoracic spine toward the right. Impression: 1. No CT evidence of acute pulmonary embolus is seen. Nor do I see evidence of thoracic aortic aneurysm or dissection. 2. Old healed granulomatous disease is seen on the left. 3. 4 mm soft tissue lung nodule posterolaterally at left lung base on axial images #54 and #55. If the patient is at low risk for cancer, no follow-up is recommended according to Fleischner Society guidelines from 2017. If the patient is at high risk, an optional CT of the chest in 12 months may be considered.
== END 2021-04-07 20:23 | disposition home or self-care (01) ==
LOC: ED 17:04
DX: B34.9 Viral infection, unspecified (principal); R05 Cough; R06.02 Shortness of breath; M54.6 Pain in thoracic spine; R11.2 Nausea with vomiting, unspecified; R19.7 Diarrhea, unspecified; Z79.899 Other long term (current) drug therapy; R51.9 Headache, unspecified; R53.1 Weakness; J84.10 Pulmonary fibrosis, unspecified
CPT/HCPCS: 36000; 36415; 71260; 84484; 93005; 93970; 96374; 96375; 99284; J2270; J2405

== ENCOUNTER 2021-05-10 04:18 | Emergency (ER) | payer OTHER ==
[2021-05-10 04:32] VITALS: BP 116/81
--- NOTE | 2021-05-10 05:16 | ERPHSYRPT ---
- History of Present Illness Time Seen by Provider: 05/10/21 05:12 Source: patient, family Exam Limitations: no limitations Patient Subjective Stated Complaint: red, itchy rash Triage Nursing Assessment: red circular raised rash on face, chest, abdomen, arms, ears, thighs Physician History: pt had diarrhea and had Covid test on Tuesday which was negative, had continued symptoms and broke out in rash yesterday with itching since. No fever or any resp symptoms and GI has resolved now. Timing/Duration: constant Severity: moderate Location: face, torso, extremities Possible Causes: no cause identified Associated Symptoms: rash, No difficulty breathing, No fever, No flushing, No headache, No hives, No sore throat Allergies/Adverse Reactions: Sulfa (Sulfonamide Antibiotics) [Sulfa(Sulfonamide Antibiotics)] Allergy (Intermediate, Verified 04/07/21 17:06) Rash Penicillins Allergy (Unknown, Verified 04/07/21 17:06) Rash pt reports she is not allergic to penicillin Home Medications: Fluticasone/Salmeterol [Advair 250-50 Diskus] 2 puff IH BID PRN 02/11/14 [History] Bupropion HCl [Wellbutrin] 300 mg PO DAILY 04/21/16 [History] Fexofenadine HCl [Sonia] 180 mg PO DAILY 04/21/16 [History] Paroxetine HCl [Paxil] 40 mg PO DAILY 04/21/16 [History] Hx Tetanus, Diphtheria Vaccination/Date Given: No Hx Influenza Vaccination/Date Given: No Hx Pneumococcal Vaccination/Date Given: No Immunizations Up to Date: Yes Travel Risk - International Travel Have you traveled outside of the country in past 3 weeks: No - Coronavirus Screening Are you exhibiting any of the following symptoms?: No Close contact with a COVID-19 positive Pt in past 14-21 Days: No - Vaccine Status Have you recieved a Covid-19 vaccination: Yes 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[employer] - Review of Systems Constitutional: No Fever, No Chills Eyes: No Symptoms Ears, Nose, & Throat: No Symptoms Respiratory: No Cough, No Dyspnea Cardiac: No Chest Pain, No Edema, No Syncope Abdominal/Gastrointestinal: No Abdominal Pain, No Nausea, No Vomiting, No Diarrhea Genitourinary Symptoms: No Dysuria Musculoskeletal: No Back Pain, No Neck Pain Skin: Rash Neurological: No Dizziness, No Focal Weakness, No Sensory Changes Psychological: No Symptoms Endocrine: No Symptoms Hematologic/Lymphatic: No Symptoms Immunological/Allergic: No Symptoms All Other Systems: Reviewed and Negative - Past Medical History Pertinent Past Medical History: Yes Neurological History: No Pertinent History ENT History: No Pertinent History Cardiac History: Arrhythmia, Other Respiratory History: Asthma Endocrine Medical History: No Pertinent History Musculoskeletal History: No Pertinent History GI Medical History: GERD, Irritable Bowel History: No Pertinent History Psycho-Social History: No Pertinent History Female Reproductive Disorders: No Pertinent History - Past Surgical History Past Surgical History: Yes Neuro Surgical History: No Pertinent History Cardiac: Other Respiratory: No Pertinent History Gastrointestinal: Appendectomy Genitourinary: No Pertinent History Musculoskeletal: No Pertinent History Female Surgical History: Section, Tubal Ligation, Other Other Surgical History: TONSILS. ENDOMETREOSIS. HEART ABLATION FOR VTACH - Social History Smoking Status: Never smoker Exposure to second hand smoke: No Drug Use: none Patient Lives Alone: No - Female History Hx Last Menstrual Period: 05/10/21 Hx Now: No - Nursing Vital Signs Nursing Vital Signs: Initial Vital Signs Temperature 98.3 F 05/10/21 04:24 Pulse Rate 86 05/10/21 04:24 Respiratory Rate 18 05/10/21 04:24 Blood Pressure 116/81 05/10/21 04:24 O2 Sat by Pulse Oximetry 96 05/10/21 04:24 Pain Scale Pain Intensity 0 - Physical Exam General Appearance: no apparent distress, alert Eye Exam: PERRL/EOMI, eyes nml inspection Ears, Nose, Throat Exam: normal ENT inspection, pharynx normal, moist mucous membranes Neck Exam: normal inspection, non-tender, supple, full range of motion Respiratory Exam: normal breath sounds, lungs clear, No respiratory distress Cardiovascular Exam: regular rate/rhythm, normal heart sounds Gastrointestinal/Abdomen Exam: soft, mass, No tenderness Back Exam: normal inspection, normal range of motion, No CVA tenderness, No vertebral tenderness Extremity Exam: normal inspection, normal range of motion Neurologic Exam: alert, oriented x 3, cooperative, normal mood/affect, sensation nml, No motor deficits Skin Exam: normal color, warm, dry, rash, other (maculo papular) SpO2 Interpretation: normal SpO2: 96 O2 Delivery: Room Air - Course Nursing assessment & vital signs reviewed: Yes Ordered Tests: Active Orders 24 hr Category Date Time Status CBC W DIFF Stat Lab 05/10/21 05:16 Completed CMP Stat Lab 05/10/21 05:16 Completed CULTURE,URINE Stat Lab 05/10/21 05:16 Received UA W/RFX UR CULTURE Stat Lab 05/10/21 05:16 Completed Medication Summary Discontinued Medications Generic Name Dose Route Start Last Admin Trade Name Faustino PRN Reason Stop Dose Admin Diphenhydramine HCl 50 mg 05/10/21 05:30 05/10/21 05:32 Benadryl 25 Mg Capsule PO 05/10/21 05:31 50 mg STAT ONE Administration Diphenhydramine HCl Confirm 05/10/21 05:31 Benadryl 25 Mg Capsule Administered 05/10/21 05:32 Dose 50 mg .ROUTE .STK-MED ONE Prednisone 40 mg 05/10/21 05:29 05/10/21 05:32 Deltasone 20 Mg PO 05/10/21 05:30 40 mg STAT ONE Administration Prednisone Confirm 05/10/21 05:30 Deltasone 20 Mg Administered 05/10/21 05:31 Dose 40 mg .ROUTE .STK-MED ONE Lab/Rad Data: Laboratory Result Diagrams 05/10/21 05:16 05/10/21 05:16 Laboratory Results 05/10/21 05/10/21 05/10/21 Range/Units 05:16 05:16 05:16 WBC 8.6 (4.0-10.5) K/mm3 RBC 4.36 (4.1-5.4) M/mm3 Hgb 13.4 (12.0-16.0) gm/dl Hct 41.3 (35-47) % MCV 94.7 (78-100) fl MCH 30.7 (26-32) pg MCHC 32.4 (32-36) g/dl RDW 14.8 H (11.5-14.0) % Plt Count 235 (150-450) K/mm3 MPV 9.8 (7.5-11.0) fl Gran % 57.9 (36.0-66.0) % Eos # (Auto) 0.37 (0-0.5) Absolute Lymphs (auto) 2.84 (1.0-4.6) Absolute Monos (auto) 0.41 (0.0-1.3) Lymphocytes % 32.9 (24.0-44.0) % Monocytes % 4.8 (0.0-12.0) % Eosinophils % 4.3 (0.00-5.0) % Basophils % 0.1 (0.0-0.4) % Absolute Granulocytes 4.99 (1.4-6.9) Basophils # 0.01 (0-0.4) Sodium 142 (137-145) mmol/L Potassium 4.4 (3.5-5.1) mmol/L Chloride 104 (98-107) mmol/L Carbon Dioxide 27 (22-30) mmol/L Anion Gap 15.8 H (5-15) MEQ/L BUN 14 (7-17) mg/dL Creatinine 0.80 (0.52-1.04) mg/dL Estimated GFR > 60.0 ML/MIN Glucose 101 (74-106) mg/dL Calcium 9.2 (8.4-10.2) mg/dL Total Bilirubin 0.20 (0.2-1.3) mg/dL AST 30 (14-36) U/L ALT 33 (0-35) U/L Alkaline Phosphatase 76 (38-126) U/L Serum Total Protein 7.6 (6.3-8.2) g/dL Albumin 4.4 (3.5-5.0) g/dL Urine Color YELLOW (YELLOW) Urine Appearance CLEAR (CLEAR) Urine pH 6.0 (5-6) Ur Specific Qulin 1.006 (1.005-1.025) Urine Protein NEGATIVE (Negative) Urine Ketones NEGATIVE (NEGATIVE) Urine Blood LARGE (0-5) Nelson/ul Urine Nitrite NEGATIVE (NEGATIVE) Urine Bilirubin NEGATIVE (NEGATIVE) Urine Urobilinogen NEGATIVE (0-1) mg/dL Ur Leukocyte Esterase NEGATIVE (NEGATIVE) Urine WBC (Auto) 6-10 (0-5) /HPF Urine RBC (Auto) >101 (0-2) /HPF U Epithel Cells (Auto) NONE (FEW) /HPF Urine Bacteria (Auto) RARE (NEGATIVE) /HPF Urine Culture Reflexed YES (NO) Urine Glucose NEGATIVE (NEGATIVE) mg/dL - Progress Progress: improved, re-examined Counseled pt/family regarding: lab results, diagnosis, need for follow-up - Departure Departure Disposition: Home Clinical Impression: Person under investigation for COVID-19, Rash and nonspecific skin eruption, He maturia Condition: Good Critical Care Time: No Referrals: DOCTOR,NO FAMILY [Primary Care Provider] - Instructions: Skin Rash (DC), Viral Exanthem (DC), Coronavirus Disease 2019 (COVID-19) (DC), Blood in the Urine (Hematuria), Adult (DC) Additional Instructions: We are treating you for the rash but have not yet determined a cause , so follow-up with your Dr. is important to complete the workup and clear you back to work. It could still be Covid so we advise to self-quarantine until the result is available of the repeat test we ordered for Covid. There is blood in urine which is most likely from your current period, but still needs to be recheck after your period to confirm resolution. Return meantime if short of breath , trouble swallowing or any other concerns. Prescriptions: Methylprednisolone Packet [Medrol Dosepack] 4 mg PO UD #30 packet
[2021-05-10 05:21] VITALS: PULSE 84
[2021-05-10] MEDS ORDERED: DELTASONE 20 MG PO ONE (05:29)
[2021-05-10] MEDS ORDERED: BENADRYL 25 MG CAPSULE PO ONE (05:30)
[2021-05-10] MEDS ORDERED: DELTASONE 20 MG ONE (05:30)
[2021-05-10 05:31] LABS: Absolute Neutrophil Ct (ANC) 4.99 (1.4-6.9); BASOPHIL % 0.1 % (0.0-0.4); Basophil (Absolute #) 0.01 (0-0.4); Eosinophil % 4.3 % (0.00-5.0); Eosinophil (Absolute #) 0.37 (0-0.5); Hematocrit 41.3 % (35-47); Hemoglobin 13.4 gm/dl (12.0-16.0); Lymphocyte (Absolute #) 2.84 (1.0-4.6); Lymphocytes % 32.9 % (24.0-44.0); Mean Cell Volume 94.7 fl (78-100); Mean Corpuscular Hemoglobin 30.7 pg (26-32); Mean Corpuscular Hgb Concent. 32.4 g/dl (32-36); Mean Platelet Volume 9.8 fl (7.5-11.0); Monocyte (Absolute #) 0.41 (0.0-1.3); Monocytes % 4.8 % (0.0-12.0); Neutrophil % 57.9 % (36.0-66.0); Platelet Count 235 K/mm3 (150-450); Red Blood Count 4.36 M/mm3 (4.1-5.4); Red Cell Distribution Width 14.8 % (11.5-14.0); White Blood Count 8.6 K/mm3 (4.0-10.5)
[2021-05-10] MEDS ORDERED: BENADRYL 25 MG CAPSULE ONE (05:31)
[2021-05-10 05:35] VITALS: O2SAT 96
[2021-05-10 05:36] LABS: Appearance CLEAR (CLEAR); Bacteria RARE /HPF (NEGATIVE); Bilirubin NEGATIVE (NEGATIVE); Blood LARGE Ery/ul (0-5); Glucose NEGATIVE (NEGATIVE); Ketones NEGATIVE (NEGATIVE); Leukocyte Esterase NEGATIVE (NEGATIVE); Nitrite NEGATIVE (NEGATIVE); Protein,Urine Dip NEGATIVE (Negative); RBC >101 /HPF (0-2); Specific Gravity 1.006 (1.005-1.025); Urobilinogen NEGATIVE mg/dL (0-1)
[2021-05-10 05:45] LABS: ALBUMIN 4.4 g/dL (3.5-5.0); ALKALINE PHOSPHATASE 76 U/L (38-126); ANION GAP 15.8 MEQ/L (5-15); BLOOD UREA NITROGEN 14 mg/dL (7-17); CHLORIDE 104 mmol/L (98-107); Calcium 9.2 mg/dL (8.4-10.2); Carbon Dioxide 27 mmol/L (22-30); EST GLOMERULAR FILTRATION RATE > 60.0 ML/MIN; Glucose 101 mg/dL (74-106); Potassium 4.4 mmol/L (3.5-5.1); SGOT/AST 30 U/L (14-36); SGPT/ALT 33 U/L (0-35); SODIUM 142 mmol/L (137-145); Total Protein 7.6 g/dL (6.3-8.2)
== END 2021-05-10 06:19 | disposition home or self-care (01) ==
LOC: ED 04:18
DX: Z01.812 Encounter for preprocedural laboratory examination (principal); R21 Rash and other nonspecific skin eruption
CPT/HCPCS: 36415; 80053; 81001; 85025; 87086; 99283; U0003; A9270-GY

== ENCOUNTER 2021-05-11 18:45 | Emergency (ER) | payer OTHER ==
[2021-05-11] MEDS ORDERED: Kenalog-40 IM ONE (20:57)
[2021-05-11] MEDS ORDERED: Kenalog-40 ONE (21:02)
--- NOTE | 2021-05-11 21:03 | ERPHSYRPT ---
- History of Present Illness Time Seen by Provider: 05/11/21 20:55 Source: patient Exam Limitations: no limitations Patient Subjective Stated Complaint: rash following a week of nvd, fever and body aches. rash covers entire body. pt states rash blackburn, hurts and itches Triage Nursing Assessment: red rash covering entire body. pt states some of the rash is weeping clear fluid Physician History: 46 years old female presented in the ER for evaluation of rash for the last 3 days. Patient reports she had a nausea vomiting and Covid symptoms which lasted for almost a week and started to improve, Covid testing is pending and started to have rash all over which is progressively worsening. She was evaluated in the ER and currently on Medrol Dosepak but does not seem to have much help as she is continues to have itching and burning sensation. Denies any difficulty breathing. Vomiting and diarrhea is improved. No fever or chills reported. Timing/Duration: day(s) (3), constant, gradual onset, worse Quality: burning, itchy, painful Severity: moderate Location: face, torso, extremities, generalized Possible Causes: no cause identified Associated Symptoms: rash, No difficulty breathing, No flushing, No hives, No malaise, No sore throat Allergies/Adverse Reactions: Sulfa (Sulfonamide Antibiotics) [Sulfa(Sulfonamide Antibiotics)] Allergy (Intermediate, Verified 04/07/21 17:06) Rash Penicillins Allergy (Unknown, Verified 04/07/21 17:06) Rash pt reports she is not allergic to penicillin Home Medications: Fluticasone/Salmeterol [Advair 250-50 Diskus] 2 puff IH BID PRN 02/11/14 [History] Bupropion HCl [Wellbutrin] 300 mg PO DAILY 04/21/16 [History] Fexofenadine HCl [Sonia] 180 mg PO DAILY 04/21/16 [History] Paroxetine HCl [Paxil] 40 mg PO DAILY 04/21/16 [History] Hx Tetanus, Diphtheria Vaccination/Date Given: No Hx Influenza Vaccination/Date Given: No Hx Pneumococcal Vaccination/Date Given: No Immunizations Up to Date: Yes Travel Risk - International Travel Have you traveled outside of the country in past 3 weeks: No - Coronavirus Screening Symptoms: Vomiting/Diarrhea, Loss of Taste or Smell, Headaches/Body Aches/Fatigue Close contact with a COVID-19 positive Pt in past 14-21 Days: No - Vaccine Status Have you recieved a Covid-19 vaccination: Yes 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[employer] - Review of Systems Constitutional: No Symptoms Eyes: No Symptoms Ears, Nose, & Throat: No Symptoms Respiratory: No Symptoms Cardiac: No Symptoms Abdominal/Gastrointestinal: No Symptoms Genitourinary Symptoms: No Symptoms Skin: Rash Neurological: No Symptoms Psychological: Anxiety Endocrine: No Symptoms Hematologic/Lymphatic: No Symptoms Immunological/Allergic: No Symptoms - Past Medical History Pertinent Past Medical History: Yes Neurological History: No Pertinent History ENT History: No Pertinent History Cardiac History: Arrhythmia, Other Respiratory History: Asthma Endocrine Medical History: No Pertinent History Musculoskeletal History: No Pertinent History GI Medical History: GERD, Irritable Bowel History: No Pertinent History Psycho-Social History: No Pertinent History Female Reproductive Disorders: No Pertinent History - Past Surgical History Past Surgical History: Yes Neuro Surgical History: No Pertinent History Cardiac: Other Respiratory: No Pertinent History Gastrointestinal: Appendectomy Genitourinary: No Pertinent History Musculoskeletal: No Pertinent History Female Surgical History: Section, Tubal Ligation, Other Other Surgical History: TONSILS. ENDOMETREOSIS. HEART ABLATION FOR VTACH - Social History Smoking Status: Never smoker Exposure to second hand smoke: No Drug Use: none Patient Lives Alone: No - Female History Hx Last Menstrual Period: 05/08/21 Hx Now: No - Nursing Vital Signs Nursing Vital Signs: Initial Vital Signs Temperature 96.6 F 05/11/21 20:33 Pulse Rate 103 H 05/11/21 20:33 Respiratory Rate 20 05/11/21 20:33 Blood Pressure 148/90 05/11/21 20:33 O2 Sat by Pulse Oximetry 97 05/11/21 20:33 Pain Scale Pain Intensity 6 - Physical Exam General Appearance: no apparent distress, alert, anxiety Eye Exam: PERRL/EOMI, eyes nml inspection Ears, Nose, Throat Exam: normal ENT inspection, pharynx normal Neck Exam: normal inspection, non-tender, full range of motion Respiratory Exam: normal breath sounds, lungs clear Cardiovascular Exam: regular rate/rhythm, normal heart sounds Gastrointestinal/Abdomen Exam: soft, No tenderness Extremity Exam: normal inspection, normal range of motion Neurologic Exam: alert, oriented x 3, cooperative, 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 Blanchable. No increased temperature. No definite of tenderness.) SpO2 Interpretation: normal SpO2: 97 O2 Delivery: Room Air Ordered Tests: Medication Summary Discontinued Medications Generic Name Dose Route Start Last Admin Trade Name Faustino PRN Reason Stop Dose Admin Sodium Chloride 1,000 mls @ 999 mls/hr 05/11/21 22:09 05/11/21 22:24 Sodium Chloride 0.9% 1000 Ml IV 05/11/21 23:09 999 mls/hr .Q1H1M STA Administration Sodium Chloride Confirm 05/11/21 22:11 Sodium Chloride 0.9% 1000 Ml Administered 05/11/21 22:12 Dose 1,000 mls @ ud .ROUTE .STK-MED ONE Triamcinolone Acetonide 60 mg 05/11/21 20:57 05/11/21 21:05 Kenalog-40 IM 05/11/21 20:58 60 mg STAT ONE Administration Triamcinolone Acetonide Confirm 05/11/21 21:02 Kenalog-40 Administered 05/11/21 21:03 Dose 80 mg .ROUTE .STK-MED ONE Lab/Rad Data: Laboratory Result Diagrams 05/11/21 21:15 05/11/21 21:15 Laboratory Results 05/11/21 05/11/21 Range/Units 21:15 21:15 WBC 13.0 H (4.0-10.5) K/mm3 RBC 4.53 (4.1-5.4) M/mm3 Hgb 14.1 (12.0-16.0) gm/dl Hct 43.1 (35-47) % MCV 95.1 (78-100) fl MCH 31.1 (26-32) pg MCHC 32.7 (32-36) g/dl RDW 14.9 H (11.5-14.0) % Plt Count 262 (150-450) K/mm3 MPV 10.4 (7.5-11.0) fl Gran % 94.1 H (36.0-66.0) % Eos # (Auto) 0.01 (0-0.5) Absolute Lymphs (auto) 0.63 L (1.0-4.6) Absolute Monos (auto) 0.10 (0.0-1.3) Lymphocytes % 4.9 L (24.0-44.0) % Monocytes % 0.8 (0.0-12.0) % Eosinophils % 0.1 (0.00-5.0) % Basophils % 0.1 (0.0-0.4) % Absolute Granulocytes 12.22 H (1.4-6.9) Basophils # 0.01 (0-0.4) Sodium 138 (137-145) mmol/L Potassium 4.1 (3.5-5.1) mmol/L Chloride 104 (98-107) mmol/L Carbon Dioxide 18 L (22-30) mmol/L Anion Gap 20.5 H (5-15) MEQ/L BUN 14 (7-17) mg/dL Creatinine 0.89 (0.52-1.04) mg/dL Estimated GFR > 60.0 ML/MIN Glucose 168 H (74-106) mg/dL Calcium 9.3 (8.4-10.2) mg/dL Total Bilirubin 0.30 (0.2-1.3) mg/dL AST 40 H (14-36) U/L ALT 40 H (0-35) U/L Alkaline Phosphatase 84 (38-126) U/L Serum Total Protein 8.1 (6.3-8.2) g/dL Albumin 4.6 (3.5-5.0) g/dL - Progress Progress: unchanged Progress Note: 05/11/21 She is given Kenalog shot. She is advised to continue with steroids and will give her hydroxyzine to take along with it. I do not know the exact cause of her rash but could be viral etiology versus some kind of allergic reaction as patient had some antibiotics taken almost a week ago. She does not have any difficulty breathing. Currently Covid testing is pending which could be the reason for this rash. Baseline work-up showed white count of 13 and CMP consistent with dehydration which I believe patient is getting from previous vomiting and diarrhea on last week. He is given fluids in here, she is feeling better, recommended increase hydration. At this point I do not think she needs any further work-up and recommended outpatient primary care and possible referral for dermatology for further evaluation. Discussed signs symptoms of worsening needing return to ER which she seems understanding. - Departure Departure Disposition: Home Clinical Impression: Rash and nonspecific skin eruption, Dehydration, Viral syndrome Condition: Stable Critical Care Time: No Referrals: DOCTOR,NO FAMILY [Primary Care Provider] - VIRY PETIT [ACTIVE STAFF] - (Call tomorrow for reevaluation) Instructions: Dehydration, Adult (DC), Skin Rash (DC) Additional Instructions: Drink plenty of fluids. Continue with steroids. Take hydroxyzine as needed. Do not take Benadryl with hydroxyzine. Apply calamine lotion. Follow-up with primary care for reevaluation and may need referral for dermatology if no improvement occur. Return to ER if having difficulty breathing/fever chills etc. Prescriptions: Hydroxyzine HCl 25 mg [Atarax 25 mg] 25 mg PO Q6H PRN #20 tablet PRN Reason: Itching
[2021-05-11 21:18] LABS: Absolute Neutrophil Ct (ANC) 12.22 (1.4-6.9); BASOPHIL % 0.1 % (0.0-0.4); Basophil (Absolute #) 0.01 (0-0.4); Eosinophil % 0.1 % (0.00-5.0); Eosinophil (Absolute #) 0.01 (0-0.5); Hematocrit 43.1 % (35-47); Hemoglobin 14.1 gm/dl (12.0-16.0); Lymphocyte (Absolute #) 0.63 (1.0-4.6); Lymphocytes % 4.9 % (24.0-44.0); Mean Cell Volume 95.1 fl (78-100); Mean Corpuscular Hemoglobin 31.1 pg (26-32); Mean Corpuscular Hgb Concent. 32.7 g/dl (32-36); Mean Platelet Volume 10.4 fl (7.5-11.0); Monocytes % 0.8 % (0.0-12.0); Neutrophil % 94.1 % (36.0-66.0); Platelet Count 262 K/mm3 (150-450); Red Blood Count 4.53 M/mm3 (4.1-5.4); Red Cell Distribution Width 14.9 % (11.5-14.0)
[2021-05-11 21:43] LABS: ALBUMIN 4.6 g/dL (3.5-5.0); ALKALINE PHOSPHATASE 84 U/L (38-126); ANION GAP 20.5 MEQ/L (5-15); BLOOD UREA NITROGEN 14 mg/dL (7-17); CHLORIDE 104 mmol/L (98-107); Calcium 9.3 mg/dL (8.4-10.2); Carbon Dioxide 18 mmol/L (22-30); Creatinine 1 0.89 mg/dL (0.52-1.04); EST GLOMERULAR FILTRATION RATE > 60.0 ML/MIN; Glucose 168 mg/dL (74-106); Potassium 4.1 mmol/L (3.5-5.1); SGOT/AST 40 U/L (14-36); SGPT/ALT 40 U/L (0-35); SODIUM 138 mmol/L (137-145); Total Protein 8.1 g/dL (6.3-8.2)
[2021-05-11] MEDS ORDERED: Sodium Chloride 0.9% 1000 ML 1,000 ML IV STA (22:09)
[2021-05-11] MEDS ORDERED: Sodium Chloride 0.9% 1000 ML 1,000 ML ONE (22:11)
[2021-05-11 22:18] VITALS: BP 134/81; PULSE 95
[2021-05-11 22:21] VITALS: O2SAT 97
== END 2021-05-11 23:14 | disposition home or self-care (01) ==
LOC: ED 18:45
DX: R21 Rash and other nonspecific skin eruption (principal); B34.9 Viral infection, unspecified
CPT/HCPCS: 36415; 80053; 85025; 96372; 99284; J3301

== ENCOUNTER 2021-05-23 15:54 | Emergency (ER) | payer OTHER ==
[2021-05-23] MEDS ORDERED: Vistaril 50 MG/ML IM ONE (16:34)
[2021-05-23] MEDS ORDERED: VISTARIL 100MG/2ML IM ONE (16:37)
--- NOTE | 2021-05-23 16:51 | ERPHSYRPT ---
- History of Present Illness Time Seen by Provider: 05/23/21 16:47 Source: patient Exam Limitations: no limitations Patient Subjective Stated Complaint: PT states "I have had this rash for 3 weeks, I am on steroids and I just want to sleep. I was drinking a little and I took melatonin to sleep." Triage Nursing Assessment: Pt presented alert and oriented X 3, skin pwd. PT ambulates with an upright steady gait, able to speak in clear full sentences pt in no apparent respiratory distress. Medic stated pt vomited in the ambulance and there were pills in the vomit. Physician History: PT states "I have had this rash for 3 weeks, I am on steroids and I just want to sleep. I was drinking a little and I took melatonin to sleep." Patient is 46-year-old female with history of obesity started having a maculopapular plaque illness 3 weeks ago for which patient was given treatment including prednisone without any help. The rash is spreading all over and itching a lot and due to that she could not sleep at all. So patient took 3 melatonin tablets of 5 mg each with some vodka to help her sleep. She told her family members that and they called ambulance to bring her here. Patient is alert awake oriented to time place and person speaks appropriately. She denies any suicidal or homicidal ideation as well as delusions or hallucinations. Associated Symptoms: rash Allergies/Adverse Reactions: Sulfa (Sulfonamide Antibiotics) [Sulfa(Sulfonamide Antibiotics)] Allergy (Intermediate, Verified 04/07/21 17:06) Rash Penicillins Allergy (Unknown, Verified 04/07/21 17:06) Rash pt reports she is not allergic to penicillin Home Medications: Fluticasone/Salmeterol [Advair 250-50 Diskus] 2 puff IH BID PRN 02/11/14 [History] Bupropion HCl [Wellbutrin] 300 mg PO DAILY 04/21/16 [History] Fexofenadine HCl [Sonia] 180 mg PO DAILY 04/21/16 [History] Paroxetine HCl [Paxil] 40 mg PO DAILY 04/21/16 [History] Hx Tetanus, Diphtheria Vaccination/Date Given: No Hx Influenza Vaccination/Date Given: No Hx Pneumococcal Vaccination/Date Given: No Immunizations Up to Date: Yes Travel Risk - International Travel Have you traveled outside of the country in past 3 weeks: No - Coronavirus Screening Are you exhibiting any of the following symptoms?: No Close contact with a COVID-19 positive Pt in past 14-21 Days: No - Vaccine Status Have you recieved a Covid-19 vaccination: Yes 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[employer] - Review of Systems Constitutional: No Fever, No Chills Eyes: No Symptoms Ears, Nose, & Throat: No Symptoms Respiratory: No Cough, No Dyspnea Cardiac: No Chest Pain, No Edema, No Syncope Abdominal/Gastrointestinal: No Abdominal Pain, No Nausea, No Vomiting, No Diarrhea Genitourinary Symptoms: No Dysuria Musculoskeletal: No Back Pain, No Neck Pain Skin: Rash Neurological: Irritability, No Dizziness, No Focal Weakness, No Sensory Changes Psychological: No Symptoms, Anxiety, Other (insomnia), No Suicidal Ideations, No Homicidal Ideations, No Hallucinations Endocrine: No Symptoms All Other Systems: Reviewed and Negative - Past Medical History Pertinent Past Medical History: Yes Neurological History: No Pertinent History ENT History: No Pertinent History Cardiac History: Arrhythmia, Other Respiratory History: Asthma Endocrine Medical History: No Pertinent History Musculoskeletal History: No Pertinent History GI Medical History: GERD, Irritable Bowel History: No Pertinent History Psycho-Social History: No Pertinent History Female Reproductive Disorders: No Pertinent History - Past Surgical History Past Surgical History: Yes Neuro Surgical History: No Pertinent History Cardiac: Other Respiratory: No Pertinent History Gastrointestinal: Appendectomy Genitourinary: No Pertinent History Musculoskeletal: No Pertinent History Female Surgical History: Section, Tubal Ligation, Other Other Surgical History: TONSILS. ENDOMETREOSIS. HEART ABLATION FOR VTACH - Social History Smoking Status: Never smoker Exposure to second hand smoke: No Drug Use: none Patient Lives Alone: No - Female History Hx Last Menstrual Period: 05/04/2021 Hx Now: No - Nursing Vital Signs Nursing Vital Signs: Initial Vital Signs Temperature 97.9 F 05/23/21 15:55 Pulse Rate 99 H 05/23/21 15:55 Respiratory Rate 20 05/23/21 15:55 Blood Pressure 133/78 05/23/21 15:55 O2 Sat by Pulse Oximetry 95 05/23/21 15:55 Pain Scale Pain Intensity 0 - Physical Exam General Appearance: no apparent distress, alert Eye Exam: PERRL/EOMI, eyes nml inspection Ears, Nose, Throat Exam: normal ENT inspection, TMs normal, pharynx normal, moist mucous membranes Neck Exam: normal inspection, non-tender, supple, full range of motion Respiratory Exam: normal breath sounds, lungs clear, No respiratory distress Cardiovascular Exam: regular rate/rhythm, normal heart sounds, normal peripheral pulses Gastrointestinal/Abdomen Exam: soft, normal bowel sounds, No tenderness, No mass Back Exam: normal inspection, normal range of motion, No CVA tenderness, No mirian tebral tenderness Extremity Exam: normal inspection, normal range of motion, pelvis stable Neurologic Exam: alert, oriented x 3, cooperative, normal mood/affect, nml cerebellar function, nml station & gait, sensation nml, No motor deficits Skin Exam: normal color, warm, dry, No rash Lymphatic Exam: No adenopathy SpO2 Interpretation: normal SpO2: 95 O2 Delivery: Room Air - Course Nursing assessment & vital signs reviewed: Yes Ordered Tests: Active Orders 24 hr Category Date Time Status Clean Catch Urine Specimen STAT Care 05/23/21 16:34 Active CBC W DIFF Stat Lab 05/23/21 16:59 Completed CMP Stat Lab 05/23/21 16:59 Completed ETHYL ALCOHOL Stat Lab 05/23/21 16:59 Completed SALICYLATE Stat Lab 05/23/21 16:59 Completed UA W/RFX UR CULTURE Stat Lab 05/23/21 16:34 Ordered Urine Triage Profile Stat Lab 05/23/21 16:34 Ordered Medication Summary Discontinued Medications Generic Name Dose Route Start Last Admin Trade Name Freq PRN Reason Stop Dose Admin Hydroxyzine HCl 50 mg 05/23/21 16:34 05/23/21 16:40 Vistaril 50 Mg/Ml IM 05/23/21 16:35 50 mg STAT ONE Administration Hydroxyzine HCl Confirm 05/23/21 16:37 Vistaril 100mg/2ml Administered 05/23/21 16:38 Dose 100 mg IM .STK-MED ONE Lab/Rad Data: Laboratory Result Diagrams 05/23/21 16:59 05/23/21 16:59 Laboratory Results 05/23/21 05/23/21 Range/Units 16:59 16:59 WBC 8.8 (4.0-10.5) K/mm3 RBC 4.00 L (4.1-5.4) M/mm3 Hgb 12.6 (12.0-16.0) gm/dl Hct 38.9 (35-47) % MCV 97.3 (78-100) fl MCH 31.5 (26-32) pg MCHC 32.4 (32-36) g/dl RDW 15.3 H (11.5-14.0) % Plt Count 246 (150-450) K/mm3 MPV 9.6 (7.5-11.0) fl Gran % 58.1 (36.0-66.0) % Eos # (Auto) 0.03 (0-0.5) Absolute Lymphs (auto) 2.96 (1.0-4.6) Absolute Monos (auto) 0.69 (0.0-1.3) Lymphocytes % 33.5 (24.0-44.0) % Monocytes % 7.8 (0.0-12.0) % Eosinophils % 0.3 (0.00-5.0) % Basophils % 0.3 (0.0-0.4) % Absolute Granulocytes 5.12 (1.4-6.9) Basophils # 0.03 (0-0.4) Sodium 140 (137-145) mmol/L Potassium 4.0 (3.5-5.1) mmol/L Chloride 101 (98-107) mmol/L Carbon Dioxide 28 (22-30) mmol/L Anion Gap 15.0 (5-15) MEQ/L BUN 18 H (7-17) mg/dL Creatinine 0.94 (0.52-1.04) mg/dL Estimated GFR > 60.0 ML/MIN Glucose 104 (74-106) mg/dL Calcium 8.8 (8.4-10.2) mg/dL Total Bilirubin 0.30 (0.2-1.3) mg/dL AST 40 H (14-36) U/L ALT 46 H (0-35) U/L Alkaline Phosphatase 66 (38-126) U/L Serum Total Protein 7.1 (6.3-8.2) g/dL Albumin 4.1 (3.5-5.0) g/dL Salicylates < 1.0 L (2-20) mg/dL Ethyl Alcohol 179 H (0-10) mg/dL - Progress Progress: improved Progress Note: 05/23/21 17:39 Patient is feeling much better. Patient itching has improved. Patient also states that she is feeling sleepy. Patient is informed that she is given hydroxyzine intramuscular injection which will help her for itching and which also help her to sleep. She is also advised that while she is taking this medicine might make her too drowsy so she should not drive and she should be with somebody around so that if she needs any help she can get some. 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 But it is necessary that you do not drive while taking this medicine because it may cause you drowsiness. You should also be around some adult supervision if this medicine makes you too drowsy. Follow-up with your primary care physician on Tuesday and consider dermatology specialty evaluation for your skin rash. Discharge/Care Plan ALBA CARDONA was seen on 05/23/21 in the Emergency Room. The patient was counseled regarding Diagnosis,Lab results, Imaging studies, need for follow up and when to return to the Emergency Room. Prescriptions given: Discharge Note I have spoken with the patient and/or caregivers. I have explained the patient's condition, diagnosis and treatment plan based on the information available to me at this time. I have answered the patient's and/or caregiver's questions and addressed any concerns. The patient and/or caregivers have as good understanding of the patient's diagnosis, condition and treatment plan as can be expected at this point. The vital signs have been stable. The patient's condition is stable and appropriate for discharge from the emergency department. The patient will pursue further outpatient evaluation with the primary care physician or other designated or consulting physician as outlined in the discharge instructions. The patient and/or caregivers are agreeable to this plan of care and follow-up instructions have been explained in detail. The patient and/or caregivers have received these instruction. The patient/and or caregivers are aware that any significant change in condition or worsening of symptoms should prompt an immediate return to this or the closest emergency department or call 911. Forms: Work/School Release Form Prescriptions: Hydroxyzine HCl 25 mg [Atarax 25 mg] 25 mg PO QID #30 tablet
[2021-05-23 17:03] LABS: Absolute Neutrophil Ct (ANC) 5.12 (1.4-6.9); BASOPHIL % 0.3 % (0.0-0.4); Basophil (Absolute #) 0.03 (0-0.4); Eosinophil % 0.3 % (0.00-5.0); Eosinophil (Absolute #) 0.03 (0-0.5); Hematocrit 38.9 % (35-47); Hemoglobin 12.6 gm/dl (12.0-16.0); Lymphocyte (Absolute #) 2.96 (1.0-4.6); Lymphocytes % 33.5 % (24.0-44.0); Mean Cell Volume 97.3 fl (78-100); Mean Corpuscular Hemoglobin 31.5 pg (26-32); Mean Corpuscular Hgb Concent. 32.4 g/dl (32-36); Mean Platelet Volume 9.6 fl (7.5-11.0); Monocyte (Absolute #) 0.69 (0.0-1.3); Monocytes % 7.8 % (0.0-12.0); Neutrophil % 58.1 % (36.0-66.0); Platelet Count 246 K/mm3 (150-450); Red Cell Distribution Width 15.3 % (11.5-14.0); White Blood Count 8.8 K/mm3 (4.0-10.5)
[2021-05-23 17:14] LABS: ALBUMIN 4.1 g/dL (3.5-5.0); ALKALINE PHOSPHATASE 66 U/L (38-126); BLOOD UREA NITROGEN 18 mg/dL (7-17); CHLORIDE 101 mmol/L (98-107); Calcium 8.8 mg/dL (8.4-10.2); Carbon Dioxide 28 mmol/L (22-30); Creatinine 1 0.94 mg/dL (0.52-1.04); EST GLOMERULAR FILTRATION RATE > 60.0 ML/MIN; ETHYL ALCOHOL 179 mg/dL (0-10); Glucose 104 mg/dL (74-106); SALICYLATE < 1.0 mg/dL (2-20); SGOT/AST 40 U/L (14-36); SGPT/ALT 46 U/L (0-35); SODIUM 140 mmol/L (137-145); Total Protein 7.1 g/dL (6.3-8.2)
[2021-05-23 18:02] VITALS: BP 108/61; PULSE 88; O2SAT 98
== END 2021-05-23 18:11 | disposition home or self-care (01) ==
LOC: ED 15:54
DX: R21 Rash and other nonspecific skin eruption (principal); F15.982 Other stimulant use, unspecified with stimulant-induced sleep disorder
CPT/HCPCS: 36000; 36415; 80053; 80307; 85025; 96372; 99284; J3410; G0480

== ENCOUNTER 2021-08-31 11:11 | Day surgery (SDC) | payer OTHER ==
--- NOTE | 2021-08-31 08:46 | HP ---
DATE OF SURGERY: 08/31/2021 HISTORY OF PRESENT ILLNESS: The patient is a 46-year-old for the past couple months had right upper quadrant pain associated with vomiting. History of irritable bowel syndrome. Ultrasound with cholelithiasis. PAST MEDICAL HISTORY: Asthma, irritable bowel syndrome, gastroesophageal reflux disease. PAST SURGICAL HISTORY: Appendectomy. Tubal and section in the past. Endoscopy in the past. MEDICATIONS: Advair Diskus, Sonia, montelukast, tizanidine, Ventolin HFA, vitamin D2, Wellbutrin, Lunesta, losartan. The patient did tolerate Keflex in the past. ALLERGIES: PEN[place]ILLLIN. SULFA. FAMILY HISTORY: Hypertension. Chronic obstructive pulmonary disease. SOCIAL HISTORY: No smoking or alcohol abuse. REVIEW OF SYSTEMS: Fourteen systems reviewed. No chest pain or palpitations. Other systems negative or noncontributory as above and per preadmission questionnaire. PHYSICAL EXAMINATION: GENERAL: No acute distress. HEENT: Sclerae nonicteric. CHEST: Breath sounds symmetrical. CVS: Regular rate and rhythm. ABDOMEN: Soft. No peritoneal signs. Some mild tenderness right upper quadrant. EXTREMITIES: No significant edema. No cyanosis. NEURO: Alert, oriented, moving extremities symmetrically. PSYCH: Appropriate mood and affect. IMPRESSION: Acute exacerbation of chronic cholecystitis, symptomatic cholelithiasis. I feel the patient will benefit from cholecystectomy. She was shown the risk sheet and gallbladder pamphlet, explained the procedure in detail including but not limited to bleeding or infection, risk of trocar injury or hernia, risk of bowel, bladder or blood vessel injury, risk of bile leak, bile duct injury, retained stone or sludge possibly requiring further procedure either open or ERCP, general risk of anesthesia, deep venous thrombosis, pulmonary embolism, pneumonia, perioperative risk of aches, pains, bloating, constipation and/or loose stools possibly even chronic in nature. She understands and agrees to the planned procedure, will proceed with laparoscopic cholecystectomy with possible open.
[~2021-08-31 11:11] MED LIST: Lactated Ringers 1,000 ML IV ONE; Sensorcaine 0.25% 10 ML ONE
[2021-08-31] MEDS ORDERED: Levofloxacin 500MG/100ML D5W 500 MG/100 ML BAG IV SCH (11:15)
[2021-08-31] MEDS ORDERED: CLINDAMYCIN-D5W 900 MG/50 ML*** 900 MG/50 ML BAG IV SCH (11:30)
[2021-08-31] MEDS ORDERED: Lactated Ringers 1,000 ML IV SCH (11:30)
[2021-08-31] MEDS ORDERED: Pepcid 20 MG VIAL IV ONE ×2 (12:09→12:13)
[2021-08-31] MEDS ORDERED: Versed 2 MG/2 ML Injection ONE (12:09)
[2021-08-31] MEDS ORDERED: Reglan 10 MG/2 ML ONE (12:09)
[2021-08-31] MEDS ORDERED: Zofran 4 MG/2 ML VIAL ONE ×2 (12:09→14:37)
[2021-08-31] MEDS ORDERED: Reglan 10 MG/2 ML IV ONE (12:12)
[2021-08-31] MEDS ORDERED: Versed 2 MG/2 ML Injection IV PRN (12:13)
[2021-08-31] MEDS ORDERED: Zofran 4 MG/2 ML VIAL IV STA (12:16)
[2021-08-31] MEDS ORDERED: SUBLIMAZE 100 MCG/2 ML ONE ×2 (13:23→13:57)
[2021-08-31] MEDS ORDERED: BRIDION 200MG/2ML IV ONE (13:23)
[2021-08-31] MEDS ORDERED: DIPRIVAN 200 MG/20 ML IV ONE (13:23)
[2021-08-31] MEDS ORDERED: TORAdol 30 mg Injection ONE (13:23)
[2021-08-31] MEDS ORDERED: Zemuron 100 MG/10 ML ONE ×3 (13:23→14:14)
[2021-08-31] MEDS ORDERED: Decadron 4 MG INJ ONE (13:23)
[2021-08-31] MEDS ORDERED: PHENYLEPHRINE HCL ONE (13:46)
[2021-08-31] MEDS ORDERED: Ephedrine Sulfate 50 MG/ML ONE (13:50)
[2021-08-31] MEDS ORDERED: BENADRYL 50 MG/ML ONE (14:01)
[2021-08-31] MEDS ORDERED: MORPHINE SULFATE 10 MG/ML ONE (14:37)
[2021-08-31] MEDS ORDERED: ULTRAM 50 MG PO ONE (15:17)
[2021-08-31 16:04] VITALS: O2SAT 97
[2021-08-31 16:25] VITALS: BP 160/80; PULSE 103
--- NOTE | 2021-09-01 09:39 | OP ---
SURGERY DATE/TIME: 08/31/2021 1323 PREOPERATIVE DIAGNOSIS: Acute exacerbation of chronic cholecystitis, symptomatic cholelithiasis. POSTOPERATIVE DIAGNOSIS: Acute exacerbation of chronic cholecystitis, symptomatic cholelithiasis. PROCEDURE: Laparoscopic cholecystectomy. SURGEON: Dr. Ludwig Pina. ANESTHESIA: General. ESTIMATED BLOOD LOSS: Minimal. INDICATIONS: As noted above. Risks and benefits explained in detail but not limited to and consent obtained. DESCRIPTION OF PROCEDURE AND FINDINGS: The patient was taken to the operating room. General anesthesia induced. Abdomen prepped and draped in usual sterile fashion. After official time out and no disagreement with planned procedure, a transverse incision made at the supraumbilical area. Fascia grasped and pulled upward as necessary given her depth to use a Neymar clamp to grab the fascia, pulled upward. Veress needle inserted and tested with saline. Pneumoperitoneum accomplished insufflating opening pressure of 0-15. A 5 mm bladeless port and camera inserted without difficulty followed by two - 5 mm right upper quadrant ports and 11 mm epigastric port. The gallbladder was quite distended. She had fatty infiltration to the liver but no gross cirrhosis, micronodular cirrhosis. The gallbladder is grasped retracted over the edge of the liver and laterally away from Calot's triangle. It took quite some time given her obesity requiring anesthesia dosing some relaxant additional time or two but slowly and carefully dissecting posterior, lateral to anterior fashion. Cystic duct and infundibular junction, main cystic artery isolated until critical view obtained both anteriorly and posteriorly. Once this is accomplished, the cystic duct and cystic artery clipped x3 and divided in the usual fashion after critical view obtained anteriorly and posteriorly. A couple oozing side branches off the cystic artery were clipped directly on the gallbladder wall as necessary. 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 Just prior to releasing from final attachments to the anterior edge of the liver, the liver bed re-inspected. Clips noted to be in place in cystic duct and cystic artery stumps. No signs of any active bleeding or bile leakage. It was felt there is no benefit in drain placement. The gallbladder is released from final attachments to the anterior edge of the liver, placed in the provided sac by the hospital, pulled upward into the epigastric wound. The fascia just spread slightly with the clamp allowing it to be mobilized upwards. It was opened inside the bag but outside the abdomen. Multiple medium-sized stones and sludge were carefully pulled free allowing the gallbladder and the bag to finally be pulled free and passed off without contaminating the port wound. The fascial defect that did receive some relaxant was closed under direct vision of the camera puncture closure device with #1 Vicryl. Liver bed re-inspected. Clips noted in place cystic duct and cystic artery stumps. No signs of any active bleeding or bile leakage. Irrigation was clear lateral to the liver. It was felt there is no benefit from drain placement. Pneumoperitoneum decompressed. The wound irrigated out. Skin incision closed with 4-0 Vicryl. Steri-Strips and sterile dressing applied. 0.25% Marcaine local injected along the skin incision fascial defect at the beginning of the procedure. There were no immediate complications. I will see if she has family to discuss the findings with out in the waiting area. She was transferred to the recovery room in stable condition. I will see her back in the office next week.
== END 2021-08-31 16:20 | disposition home or self-care (01) ==
LOC: SDC 11:11
PROVIDERS: ATTEND Surgery
DX: K80.00 Calculus of gallbladder with acute cholecystitis without obstruction (principal)
CPT/HCPCS: 84703; J1100; J1200; J1885; J1956; J2250; J2270; J2370; J2405; J2704; J3010; A9270-GY